=== PATIENT | male | born 1970 | race Caucasian/White ===

== ENCOUNTER 2020-01-15 18:06 | Emergency (ER) | payer OTHER ==
[~2020-01-15] VITALS: Ht 182.8 cm; Wt 117.0 kg
[2020-01-15] MEDS ORDERED: CEPHALEXIN500 M1 PO (19:05)
== END 2020-01-15 19:30 | disposition home or self-care (01) ==
LOC: ED 18:06
DX: S61.217A Laceration without foreign body of left little finger without damage to nail, initial encounter (principal); J45.909 Unspecified asthma, uncomplicated; Z91.040 Latex allergy status; W31.89XA Contact with other specified machinery, initial encounter; Y93.89 Activity, other specified; Y92.89 Other specified places as the place of occurrence of the external cause; Y99.8 Other external cause status

== ENCOUNTER → 2020-06-22 | Outpatient (CLI) | payer OTHER ==
[~2020-06-22] MED LIST: CEPHALEXIN500 M1 PO
== END | disposition home or self-care (01) ==
LOC: COVID19 00:28
PROVIDERS: ATTEND Family Medicine
DX: Z20.828 Contact with and (suspected) exposure to other viral communicable diseases (principal)